=== PATIENT | male | born 1950 | race Caucasian/White ===

== ENCOUNTER → 2019-11-16 | Outpatient (CLI) | payer OTHER | LOC: CAT 11:07 | PROVIDERS: ATTEND Internal Medicine Cardiovascular Disease | DX: Z13.6 Encounter for screening for cardiovascular disorders (principal); I25.10 Atherosclerotic heart disease of native coronary artery without angina pectoris; E78.00 Pure hypercholesterolemia, unspecified ==

== ENCOUNTER → 2019-11-16 | Outpatient (CLI) | payer OTHER, MEDICARE | LOC: SJCVC 10:25 | PROVIDERS: ATTEND Internal Medicine Cardiovascular Disease | DX: R94.31 Abnormal electrocardiogram [ECG] [EKG] (principal); I12.9 Hypertensive chronic kidney disease with stage 1 through stage 4 chronic kidney disease, or unspecified chronic kidney disease; E78.00 Pure hypercholesterolemia, unspecified; N18.9 Chronic kidney disease, unspecified; E78.5 Hyperlipidemia, unspecified; Z82.49 Family history of ischemic heart disease and other diseases of the circulatory system ==

== ENCOUNTER → 2019-12-10 | Outpatient (CLI) | payer OTHER, MEDICARE | LOC: SJCVCIMAG 09:10 | PROVIDERS: ATTEND Internal Medicine Cardiovascular Disease | DX: K76.89 Other specified diseases of liver (principal); N28.1 Cyst of kidney, acquired ==

== ENCOUNTER → 2020-10-31 | Outpatient (CLI) | payer OTHER | LOC: SJCVCIMAG 08:29 | PROVIDERS: ATTEND Internal Medicine Cardiovascular Disease | DX: I12.9 Hypertensive chronic kidney disease with stage 1 through stage 4 chronic kidney disease, or unspecified chronic kidney disease (principal); N18.9 Chronic kidney disease, unspecified; E78.2 Mixed hyperlipidemia; K21.9 Gastro-esophageal reflux disease without esophagitis ==